=== PATIENT | female | born 1965 | race Caucasian/White ===

== ENCOUNTER 2017-06-17 23:40 | Emergency (ER) | payer MEDICAID ==
[~2017-06-17] VITALS: Ht 152.4 cm; Wt 105.7 kg
[~2017-06-17 23:40] MED LIST: CARAFATE1 GM PO; LAC PO; MOTRIN800 MG PO; MYL80 CH; OMEPRAZOLE DR20 M1 PO; PREVPAC1 KIT PO; PROMETHAZINE12.5 M6 PO; PROTONIX40 MG PO; SEN PO; ZOC20 PO
[2017-06-17 23:52] VITALS: BP 132/92; Ht 152.4 cm; Wt 105.7 kg
== END 2017-06-18 00:40 | disposition home or self-care (01) ==
LOC: ED 23:40
DX: J06.9 Acute upper respiratory infection, unspecified (principal); I10 Essential (primary) hypertension; Z86.79 Personal history of other diseases of the circulatory system; Z95.5 Presence of coronary angioplasty implant and graft

== ENCOUNTER 2018-08-29 15:52 | Emergency (ER) | payer BC ==
[~2018-08-29] VITALS: Ht 152.4 cm; Wt 110.2 kg
[2018-08-29 16:04] VITALS: Ht 152.4 cm; Wt 110.2 kg
[2018-08-29 17:17] LABS: microscopic required? NO
[2018-08-29 17:37] LABS: BASOPHIL % 0.6 % (0-2); PLATELET COUNT 249 x10^3mcL (130-400); RED CELL DISTRIBUTION WIDTH 12.9 % (11.5-14.5)
[2018-08-29 17:54] LABS: CALCIUM 8.2 mg/dL (8.5-10.1); CARBON DIOXIDE 24.2 mmol/L (21-32); CHLORIDE SERUM 109 mmol/L (98-107); CREATININE SERUM 0.5 mg/dL (0.6-1.0); GFR1 > 60 mL/min; GLUCOSE SERUM 102 mg/dL (74-106); POTASSIUM SERUM 3.6 mmol/L (3.5-5.1); SODIUM SERUM 144 mmol/L (136-145)
[2018-08-29 17:57] LABS: UA SPECIFIC GRAVITY 1.025 (1.005-1.035); urine erythrocyte NEGATIVE (NEGATIVE)
[2018-08-29 17:59] LABS: ALBUMIN 3.2 g/dL (3.4-5.0); ALKALINE PHOSPHATASE 89 U/L (46-116); ALT/SGPT 26 U/L (14-59); AST/SGOT 16 U/L (15-37); BILIRUBIN TOTAL 0.4 mg/dL (0.20-1.00); TOTAL PROTEIN, SERUM 7.3 g/dL (6.4-8.2)
[2018-08-29 19:13] VITALS: BP 138/84
== END 2018-08-29 19:13 | disposition home or self-care (01) ==
LOC: ED 15:52
PROVIDERS: Emergency Medicine
DX: R21 Rash and other nonspecific skin eruption (principal); R07.89 Other chest pain; R10.31 Right lower quadrant pain; I10 Essential (primary) hypertension; Z90.49 Acquired absence of other specified parts of digestive tract
CPT/HCPCS: 36415; J1885